=== PATIENT | male | born 1940 | race Caucasian/White ===

== ENCOUNTER 2018-10-30 17:19 | Inpatient (IN) ==
[2018-10-30] MEDS ORDERED: ASPIRIN PO ONE (17:32)
[2018-10-30 18:10] LABS: HEMATOCRIT 45.1 % (42.0-52.0); HEMOGLOBIN 14.9 g/dL (14.0-18.0); MCH 29.9 PG (27-31); MCV 90.4 FL (81-99); MPV 11.1 FL (7.4-10.4); PLT 128 X1000 (130-400); RBC 4.99 XMIL (4.7-6.1); RDW 15.6 % (11.5-14.5); WBC 9.47 X1000 (4.8-10.8)
--- NOTE | 2018-10-30 18:10 | EKG Report ---
Test Performed on : 10/30/2018 5:36:41 PM Test Reason : CP Blood Pressure : / mmHG Vent. Rate : 074 BPM Atrial Rate : 074 BPM P-R Int : 162 ms QRS Dur : 082 ms QT Int : 400 ms P-R-T Axes : 058 071 118 degrees QTc Int : 444 ms Normal sinus rhythm. ST & T wave abnormality, consider anterolateral ischemia Abnormal ECG No previous ECGs available Unconfirmed Result
[2018-10-30 18:11] LABS: BASO# 0.02 X1000 (0.0-0.2); BASO% 0.2 % (0.0-0.8); EOS# 0.01 X1000 (0.0-0.7); EOS% 0.1 % (0.0-10.0); IMM GRAN# 0.03 X1000 (0.0-0.04); IMM GRAN% 0.3 % (0.0-0.5); LYMPH# 0.55 X1000 (1.2-3.4); LYMPH% 5.8 % (20.5-51.1); MONO# 0.64 X1000 (0.11-0.59); MONO% 6.8 % (1.7-9.3); NEUT# 8.22 X1000 (1.4-6.5); NEUT% 86.8 % (42.2-75.2)
--- NOTE | 2018-10-30 18:23 | Diag Imaging Result Doc PS360 ---
EXAM: CHEST-2 VIEWS INDICATION: fever/CP TECHNIQUE: 2 views COMPARISON: 05/16/2016 FINDINGS: There is a right lower lobe airspace consolidation and probably represents pneumonia. There is possibly a component of edema as well. There is mild subsegmental atelectasis at the lung base on the left. There is stable cardiomegaly. There are stable median sternotomy wires. IMPRESSION: Right basilar consolidation as described. Electronically signed by Cory Little 10/30/2018 6:20 PM
[2018-10-30 18:28] LABS: ALBUMIN 4.2 g/dL (3.5-5.0); CREATININE 1.7 mg/dL (0.7-1.2); TOTAL BILIRUBIN 1.6 mg/dL (0.20-1.00); TOTAL PROTEIN 6.3 g/dL (6.3-8.3)
[2018-10-30 18:29] LABS: INR 1.23; PROTIME 16.1 Seconds (11.0-16.0)
[2018-10-30 18:30] LABS: PTT 29.8 Seconds (22.3-41.8)
[2018-10-30 20:24] LABS: BILIRUBIN URINE 1+ (NEGATIVE); BLOOD URINE NEGATIVE (NEGATIVE); GLUCOSE URINE NEGATIVE (NEGATIVE); KETONE URINE 1+(Small) mg/dL (NEGATIVE); LEUKOCYTES URINE TRACE (NEGATIVE); NITRITE URINE POSITIVE (NEGATIVE); PH URINE 6.5; PROTEIN URINE 2+(100 mg/dL) mg/dL (NEGATIVE); SP GRAVITY URINE 1.025; UROBILINOGEN URINE 1 mg/dL
[2018-10-30 20:25] LABS: CLARITY CLEAR (CLEAR); COLOR AMBER
[2018-10-30 20:36] LABS: URINE BACTERIA NEGATIVE /HFP; URINE EPITHELIAL CELLS <10 /HPF (<10); URINE RBC <10 /HPF (<10); URINE SOURCE CLEAN CATCH; URINE WBC <10 /HPF (<10)
[2018-10-30] MEDS ORDERED: ROCEPHIN 1 GM in NS 50 ML IV ONE (20:49)
--- NOTE | 2018-10-30 21:14 | PROVIDER DOCUMENTATION ---
This chart was entered by Azucena Little Scribe, acting as scribe for Nicanor Dillard MD. HPI-General Adult - General Chief Complaint: Chest Pain Stated Complaint: FEVER / BACK PAIN / CHEST PAIN Time Seen by Provider: 10/30/18 19:35 Source: patient, family Allergies/Adverse Reactions: Patient Allergies Allergy/AdvReac Type Severity Reaction Status Date / Time codeine Allergy HIVES Verified 08/18/13 18:37 haloperidol [From Haldol] Allergy Unknown Verified 10/30/18 17:31 Home Medications: Home Medication List Medication Instructions Recorded Confirmed Last Taken Type Amlodipine Besylate 10 mg PO DAILY 08/18/13 08/18/13 Unknown History Aspirin 325 mg PO DAILY 08/18/13 08/18/13 Unknown History Ciprofloxacin HCl [Cipro] 500 mg PO BID #14 tablet 08/18/13 Unknown Rx Doxycycline 100 mg PO BID CC #20 tablet 08/18/13 Unknown Rx Fenofibrate 160 mg PO DAILY 08/18/13 08/18/13 Unknown History Furosemide 40 mg PO DAILY 08/18/13 08/18/13 Unknown History Labetalol [Trandate] 400 mg PO TID 08/18/13 10/30/18 Unknown History Multivitamin [Multi-Day Vitamins] 1 08/18/13 08/18/13 Unknown History [place]-3 Fatty Acids/Fish Oil [Fish 1,000 mg PO BID 08/18/13 10/30/18 Unknown History Oil 1,000 mg Softgel] Potassium Chloride [Klor-Con 10] 10 meq PO DAILY 08/18/13 08/18/13 Unknown History Ropinirole HCl 1 mg PO DAILY 08/18/13 08/18/13 Unknown History SIMVAstatin [Zocor] 10 mg PO DAILY 08/18/13 08/18/13 Unknown History Tramadol/APAP [Ultracet 1 - 2 each PO Q8H PRN PRN #30 08/18/13 Unknown Rx 37.5MG/325Mg] tablet - History of Present Illness -Gen Adult Nature of Presenting Problems: 78 yowm presents to er w/cc rlq pain radiating to rt chest and back starting th is am. sts pt went to get up out of bed to use restroom when pain started. pt has hx of cabg, appendectomy, and cholesytecotmy. pt has hx htn. denies hx of diverticulosis, no small bowel obstruction. pt does have hx of kidney stones. pt is obese. a&ox3, nontoxic in appearance. Review of Systems - Adult - REVIEW OF SYSTEMS - ADULT Constitutional: reports: no symptoms reported. denies: chills, fatique, night sweats Eyes: reports: no symptoms reported Ears, Nose, Mouth & Throat: reports: no symptoms reported Cardiovascular: reports: see HPI, chest pain (rt sided). denies: orthopnea, palpitations, syncope Respiratory: reports: no symptoms reported. denies: dyspnea on exertion, shortness of breath, wheezing Gastrointestinal: reports: see HPI, abdominal pain (rlq). denies: diarrhea, nausea, vomiting Genitourinary: reports: no symptoms reported Musculoskeletal: reports: see HPI, back pain. denies: joint pain, joint swelling, muscle weakness, neck pain Integumentary: reports: no symptoms reported Neurological: reports: no symptoms reported Psychiatric: reports: no symptoms reported Endocrine: reports: no symptoms reported Hematologic/Lymphatic: reports: no symptoms reported Allergic/Immunologic: reports: no symptoms reported All Other Systems: Reviewed and Negative Past History - Adult - PAST MEDICAL HISTORY-ADULT Review of Records: reports: Old Records Reviewed, Nursing Assessment Review, Medications Reviewed, Social history reviewed & non-contributory. Major Childhood Illnesses: reports: denies history Cardiovascular: reports: HTN Respiratory: reports: denies history Gastrointestinal: reports: denies history Obstetrical/Gynecological: reports: denies history Genitourinary: reports: denies history Musculoskeletal: reports: denies history Neurological: reports: denies history Endocrine/Immune: reports: denies history Other Conditions: reports: denies history - PRIOR SURGERIES/PROCEDURES Surgical/Procedure History: reports: appendectomy, CABG, cholecystectomy - PRIOR HOSPITALIZATIONS Prior Hospitalizations: reports: for other non-related - IMMUNIZATION STATUS Childhood Immunizations: See Nurse Assessment Flu Vaccine: See Nurse Assessment - FAMILY HISTORY Family History: reviewed, not pertinent - SOCIAL HISTORY Smoking: non-smoker Substance Use: none/never Physical Exam-General - PHYSICAL EXAM-ADULT Initial Vital Signs Reviewed: Yes - CONSTITUTIONAL General Appearance: appears well, alert, no apparent distress, obese. negative: thin, anxious, lethargic, slow to respond - EYES Eyes: PERRL/EOMI, pink conjunctivae - HEAD, EARS, NOSE, MOUTH & THROAT HENMT: normocephalic/atraumatic, moist mucous membranes, normal ENT inspection - NECK Neck: non-tender, full range of motion, supple, normal inspection - RESPIRATORY Respiratory: chest non-tender, lungs clear, normal breath sounds - CARDIOVASCULAR Cardiovascular: normal peripheral pulses, regular rate, rhythm, no edema, no gallop, no JVD, no murmur. negative: JVD, bradycardia, tachycardia, extra beat s, friction rub - GASTROINTESTINAL (ABDOMEN) Abdominal Exam: normal bowel sounds, soft, no organomegaly, no pulsatile mass, tenderness (rlq to palp). negative: non tender, distended, guarding, rigid - LYMPHATIC Lymphatic: no adenopathy - MUSCULOSKELETAL Back Exam: normal inspection, no CVA tenderness, no vertebral tenderness. neg ative: CVA tenderness, decreased range of motion, vertebral tenderness Extremity: normal range of motion, non-tender, normal inspection, no pedal edema , no calf tenderness, normal capillary refill. negative: deformity, erythema, pulse deficit, pedal edema, slow capillary refill Peripheral Pulses: carotid (R): 2+, carotid (L): 2+ - SKIN Integumentary: normal color, normal turgor, warm/dry - NEUROLOGIC Neurologic: grossly normal, no motor/sensory deficits - PSYCHIATRIC Psych/Mental Status: normal mood/affect, normal thought content, normal thought process, oriented x 3 Progress - PLAN OF CARE/RESULTS Progress/Plan/Lab Results: Vital Signs - 8 hr 10/30/18 17:27 Temperature 98.3 F Pulse Rate 72 Respiratory Rate 20 Blood Pressure 102/59 O2 Sat by Pulse Oximetry 92 L Laboratory Results - last 24 hr 10/30/18 10/30/18 10/30/18 17:50 17:50 17:50 WBC 9.47 RBC 4.99 Hgb 14.9 Hct 45.1 MCV 90.4 MCH 29.9 MCHC 33.0 RDW Std Deviation 15.6 H Plt Count 128 L MPV 11.1 H Immature Gran % (Auto) 0.3 Neut % (Auto) 86.8 H Lymph % (Auto) 5.8 L [place] % (Auto) 6.8 Eos % (Auto) 0.1 Baso % (Auto) 0.2 Immature Gran # (Auto) 0.03 Neut # (Auto) 8.22 H Lymph # (Auto) 0.55 L [place] # (Auto) 0.64 H Eos # (Auto) 0.01 Baso # (Auto) 0.02 PT INR PTT (Actin FS) Sodium 141 Potassium 4.0 Chloride 105 Carbon Dioxide 22 L Anion Gap 15 BUN 27 H Creatinine 1.7 H Estimated GFR/1.73 m2 39 BUN/Creatinine Ratio 16 Glucose 146 H Calculated Osmolality 289 Calcium 9.0 Total Bilirubin 1.60 H AST 20 ALT 19 Alkaline Phosphatase 29 L Creatine Kinase 182 Troponin T Ajw-I-Fnwbbuxgtoe Pept 1426 H Total Protein 6.3 Albumin 4.2 Globulin 2.0 Albumin/Globulin Ratio 2.0 10/30/18 10/30/18 17:50 17:50 WBC RBC Hgb Hct MCV MCH MCHC RDW Std Deviation Plt Count MPV Immature Gran % (Auto) Neut % (Auto) Lymph % (Auto) [place] % (Auto) Eos % (Auto) Baso % (Auto) Immature Gran # (Auto) Neut # (Auto) Lymph # (Auto) [place] # (Auto) Eos # (Auto) Baso # (Auto) PT 16.1 H INR 1.23 PTT (Actin FS) 29.8 Sodium Potassium Chloride Carbon Dioxide Anion Gap BUN Creatinine Estimated GFR/1.73 m2 BUN/Creatinine Ratio Glucose Calculated Osmolality Calcium Total Bilirubin AST ALT Alkaline Phosphatase Creatine Kinase Troponin T < 0.010 Nbu-O-Dlvdszgcdva Pept Total Protein Albumin Globulin Albumin/Globulin Ratio Orders Category Date Time Status Cardiac Monitoring DIRECTED Care 10/30/18 17:33 Active Oxygen Therapy- ED Nursing DIRECTED Care 10/30/18 17:33 Active Saline Loc NOW Care 10/30/18 17:33 Active CHEST-2 VIEWS [RAD] Stat Exams 10/30/18 17:33 Completed CBC WITH ELECTRONIC DIFF [HEME] Stat Lab 10/30/18 17:50 Completed CK PROFILE [SP CHEM] Stat Lab 10/30/18 17:50 Completed COMPREHENSIVE METABOLIC PANEL [CHEM] Stat Lab 10/30/18 17:50 Completed PRO B-NATRIURETIC PEPTIDE Stat Lab 10/30/18 17:50 Completed PROTIME WITH INR [COAG] Stat Lab 10/30/18 17:50 Completed PTT [COAG] Stat Lab 10/30/18 17:50 Completed TROPONIN T Stat Lab 10/30/18 17:50 Completed Aspirin Med 10/30/18 17:32 Discontinued 325 mg PO NOW ONE CP/SOB/Palp >45 yrs of Age Stat Oth 10/30/18 17:32 Ordered EKG [EKG] Stat Ther 10/30/18 17:33 Draft Result Diagrams: 10/30/18 17:50 10/30/18 17:50 - EKG 1 Time of EKG reading by physician:: 17:36 EKG Read and Signed by:: Irma Veras EKG Interpretation (*Must complete 3 of following elements*): Abnormal Rate: 74 Rhythm: NSR [place]: normal QRS: normal GA Interval: normal ST Wave: non-specific ST changes (St & T wave abnormality, consider anterolateral ischemia) - XRAY 1 XRAY: Bilateral XRAY Study: Chest Impression: Abnormal, See EMR Report ( EXAM: CHEST-2 VIEWS INDICATION: fever/CP TECHNIQUE: 2 views COMPARISON: 05/16/2016 FINDINGS: There is a right lower lobe airspace consolidation and probably represents pneumonia. There is possibly a component of edema as well. There is mild subsegmental atelectasis at the lung base on the left. There is stable cardiomegaly. There are stable median sternotomy wires. IMPRESSION: Right basilar consolidation as described. Electronically signed by Cory Little 10/30/2018 6:20 PM) Comparison with other Films: changes noted Departure - Departure Date of Disposition Decision: 10/30/18 Time of Disposition Decision: 21:13 DIAGNOSIS: Pneumonia Disposition: ADMITTED INPATIENT 09 Certified Medical Emergency: Emergent Condition: Stable Referrals and Follow-Ups: Britney Hernandez [Primary Care Provider] - - Critical Care Note This patient required my direct & personal management of CC.: No Attestation - Physician/ TRACE Attestation Patient care was provided by Advanced Practice Provider:: No The physician spent face to face time with patient:: Yes Advanced Practice Provider documentation review:: Supervising physician onsite and consulted in the evaluation and care of this patient. The physician did have a face to face encounter with the patient. This chart was documented by the indicated scribe, (Azucena Little Scribe) and accurately reflects the services I performed and decisions made by me, Nicanor Dillard MD, as attested by the provider's signature.
[2018-10-30] MEDS: DUONEB (A & A) INH SCH (23:51)
[2018-10-31] MEDS ORDERED: NORCO-5 PO PRN (01:54)
[2018-10-31] MEDS: REQUIP PO SCH ×2 (02:26→21:12)
[2018-10-31] MEDS: DUONEB (A & A) INH SCH ×6 (04:02→22:42)
[2018-10-31 09:11] LABS: ALBUMIN 3.4 g/dL (3.5-5.0); CALCIUM 8.3 mg/dL (8.8-10.2); CREATININE 2.7 mg/dL (0.7-1.2); POTASSIUM 3.9 mmol/L (3.5-5.1); TOTAL BILIRUBIN 0.8 mg/dL (0.20-1.00); TOTAL PROTEIN 5.9 g/dL (6.3-8.3)
[2018-10-31 09:15] LABS: BASO# 0.02 X1000 (0.0-0.2); BASO% 0.2 % (0.0-0.8); EOS# 0.03 X1000 (0.0-0.7); EOS% 0.3 % (0.0-10.0); HEMATOCRIT 40.7 % (42.0-52.0); HEMOGLOBIN 13.7 g/dL (14.0-18.0); IMM GRAN# 0.11 X1000 (0.0-0.04); IMM GRAN% 1.2 % (0.0-0.5); LYMPH# 0.74 X1000 (1.2-3.4); LYMPH% 8.4 % (20.5-51.1); MCH 30.6 PG (27-31); MCHC 33.7 g/dL (33-37); MCV 90.8 FL (81-99); MONO# 0.43 X1000 (0.11-0.59); MONO% 4.9 % (1.7-9.3); MPV 11.1 FL (7.4-10.4); NEUT# 7.53 X1000 (1.4-6.5); PLT 111 X1000 (130-400); RBC 4.48 XMIL (4.7-6.1); RDW 15.8 % (11.5-14.5); WBC 8.86 X1000 (4.8-10.8)
[2018-10-31] MEDS: LEVAQUIN 750 MG/D5W 750 MG/150 ML IVPB IV SCH (09:30)
[2018-10-31] MEDS: ASPIRIN EC PO SCH (09:45)
[2018-10-31] MEDS: LASIX PO SCH (09:45)
[2018-10-31] MEDS ORDERED: NS 1,000 ML IV SCH (09:45)
[2018-10-31] MEDS: FISH OIL CONCENTRATE PO SCH ×2 (09:45→21:12)
[2018-10-31] MEDS: THERA M PLUS PO SCH (09:45)
[2018-10-31] MEDS: NORVASC PO SCH (09:45)
[2018-10-31] MEDS: COZAAR PO SCH (09:46)
[2018-10-31] MEDS ORDERED: TYLENOL PO PRN (09:50)
[2018-10-31 10:14] LABS: ANISOCYTOSIS 1+; BANDS 4 % (0-1); LYMPHS 6 % (21-51); MONO 3 % (1-9); SEGS 87 % (42-75)
[2018-10-31 10:23] LABS: HEMOGLOBIN A1C 6.3 % (4.8-6.0)
[2018-10-31] MEDS: GLUCOSAMINE 500 MG/CHONDROITIN 400 MG PO SCH ×2 (10:57→21:12)
[2018-10-31] MEDS: HEPARIN SUBQ SCH ×2 (10:57→21:39)
--- NOTE | 2018-10-31 11:11 | HISTORY AND PHYSICAL ---
PRIMARY CARE PROVIDER: Dr. Britney Hernandez. CHIEF COMPLAINT: Right-sided chest pain with shortness of breath. HISTORY OF PRESENT ILLNESS: Mr. Dung Corbett is a 78-year-old male with a medical history of coronary artery disease with a CABG, aortic dissection with repair, hypertension, congestive heart failure, and morbid obesity, who recently was on a 5-day vacation to [place]. They drove by car, and returned home about 2 days ago. That is when he started feeling bad. He was having pain down his legs, primarily the left one, feeling more short of breath, not very hungry, was skipping meals, having more fatigue, and then apparently last night before he presented to the ER, he had a 100 degree fever that is subjective. States he has had a dry cough that is nonproductive, and has just been feeling overall more fatigued and weak. He had a chest x-ray which revealed a right lower lobe consolidation, consistent with pneumonia, but could have some component of edema, so he has been admitted and treated with antibiotic therapy. He does have somewhat of an acute kidney injury as well on top of CKD. Today, he states he is feeling better. He still has a little bit of shortness of breath, but feels a little better. He does complain of not being able to void, and will evaluate that. PAST MEDICAL HISTORY: 1. Coronary artery disease. No myocardial infarction, but CABG in 2012. 2. Hypertension. 3. Kidney stones. 4. Obesity with a BMI of 41.6. 5. Congestive heart failure. 6. Hyperlipidemia. 7. Melanoma. 8. Bilateral lower extremity sciatic nerve pain. 9. CKD stage 3. PAST SURGICAL HISTORY: 1. In 2013, had aortic dissection repair and a coronary artery bypass grafting at [facility]. 2. Appendectomy. 3. Cholecystectomy. 4. Melanoma removed from the forehead. SOCIAL HISTORY: Denies tobacco, alcohol, or illicit drug use. He actually says that he does drink about 1 to 2 beers per year at the most, if that. Lives at home with his . 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 FAMILY HISTORY: Mother had breast cancer and hypertension. Father had a heart attack in his 50s. ALLERGIES: Haldol makes him agitated, and codeine. HOME MEDICATIONS: 1. Ropinirole 1 mg p.o. nightly. 2. Fenofibrate 160 mg p.o. nightly. 3. Simvastatin 10 mg p.o. nightly. 4. Labetalol 400 mg p.o. every 8 hours. 5. Amlodipine 5 mg p.o. daily. 6. Docusate sodium 100 mg p.o. twice daily. 7. Aspirin 325 mg p.o. daily. 8. Fish oil 1000 mg p.o. twice daily. 9. Lasix 20 mg p.o. daily. 10. Glucosamine twice daily. 11. Potassium chloride 20 mEq p.o. daily. 12. Losartan 25 mg p.o. daily. 13. Multivitamin 1 tablet p.o. daily. REVIEW OF SYSTEMS: A 14-point review of systems was complete, and all were negative, except for those mentioned in the above HPI. PHYSICAL EXAMINATION: VITAL SIGNS: Temperature 97.9 degrees, heart rate 66, respiratory rate 20, blood pressure 122/60, O2 saturation 93% on 3 L nasal cannula. GENERAL: Mr. Dung Corbett is a 78-year-old male in no acute distress. He is able to answer questions appropriately. HEENT: Atraumatic, normocephalic. Pupils equal, round, reactive to light. Extraocular movements intact. Mucous membranes are dry. NECK: Trachea midline. CARDIOVASCULAR: S1, S2. Regular rate and rhythm. No rubs, gallops, murmurs. Trace lower extremity edema. There are +2 dorsalis and radial pulses. Negative JVD or carotid bruits. PULMONARY: Clear to auscultate. Decreased in the right base. No accessory muscle use or work of breathing noted. Tolerating 3 L nasal cannula. GASTROINTESTINAL: Soft, nontender, nondistended. Positive bowel sounds x4. EXTREMITIES: Moves all extremities equally. Decreased range of motion. NEUROLOGIC: A and O x3. Follows commands. Sensory is intact. SKIN: Warm, dry, intact. LABORATORY DATA: White blood cells 8000, hemoglobin 13, hematocrit 40, platelet count 111. D- dimer is 1.15. Sodium 139, potassium 3.9, BUN 39, creatinine is 2.7, glucose 165, calcium 8.3, bilirubin 0.80. AST 20, ALT 16. Negative cardiac enzymes. ProBNP 1426. Albumin 3.4. Serum lactate 1.9. Urinalysis shows 2+ protein, 1+ ketones, positive nitrites, 1+ bilirubin, trace white blood cells, negative for bacteria. IMAGING: Chest x-ray: Right basilar consolidation. Could have some component of edema as well. EKG: Normal sinus rhythm, rate 74, QTc is 444. ASSESSMENT AND PLAN: 1. Right lower lobe pneumonia, community acquired. Will be on Levaquin and Rocephin, nebulizers, albuterol and Atrovent every 4 hours. Sputum culture if he is able to provide any. 2. Sciatic nerve pain, bilateral lateral lower extremities, but has some new pain with an elevated D-dimer that is different since his long-distance trip that he was in a car, so will get an ultrasound of the lower extremities. Will also go ahead and just get a V/Q scan to rule out any pulmonary emboli. 3. Acute kidney injury on chronic kidney disease stage 3. He did already get his losartan and his Lasix and his amlodipine this morning, so will repeat a BMP around 3:30 today. We may have to just stop those while he is in here. Go ahead and start him on some normal saline at 75 an hour for about 1 bag or 1 liter worth to rehydrate his kidneys. He has not had a whole lot of oral intake. He has been skipping meals for the last 2 days. 4. History of congestive heart failure. We are going to get an echocardiogram to evaluate systolic versus diastolic. His Lasix has been continued. It might have to be stopped though due to the acute kidney injury. Will re-evaluate that around 3:30 or 4:00 today. 5. Hyperlipidemia. Continue Zocor and fenofibrate. 6. Hypertension. Labetalol will be continued at 400 by mouth every 8 hours. Amlodipine 5 mg daily was resumed, but that might have to be discontinued since his kidneys are worsening, and the losartan 25 mg by mouth daily, that was resumed, but it may need to be stopped as well, so like I said, we will evaluate around 3:00 or 4:00 today. 7. Thrombocytopenia. Admission platelet count was 128,000. Today, it is 111,000. He is on heparin subcutaneously 5000 units twice a day for deep venous thrombosis prophylaxis, so will have to monitor the platelet count daily. There are no signs or symptoms of bleeding. 8. Hyperglycemia. He denies having diabetes. Will check a hemoglobin A1c. His three sugars while he has been here were 146, 165, 135. 9. Deep venous thrombosis prophylaxis. Heparin 5000 units twice a day. 10. Urinalysis with positive nitrites, but negative bacteria, so will follow up on the pending culture. Dictated by MARKUS Bruner for John Anderson MD Addendum: Patient seen and examined by myself. Agree with MARKUS note. It reflects my assessment and plan. Patient is being admitted to hospital for pneumonia. Will start him on Rocephin and Levaquin, breathing treatments. Will monitor patient closely. cc: MARKUS Bruner MD [facility]
--- NOTE | 2018-10-31 12:31 | Diag Imaging Result Doc PS360 ---
LUNG SCAN / VQ - 10/31/2018 INDICATION: sob; lung pain; elevated ddimer TECHNIQUE: 39.8 mCi of DTPA was used for inhalation. 5.9 mCi of MAA was used for injection. COMPARISON: Chest x-ray from 10/30/2018 FINDINGS: There is normal localization pattern of both radiotracer's. There is no pulmonary perfusion defect. IMPRESSION: Negative for pulmonary embolism. Electronically signed by Kuldeep Hinson 10/31/2018 12:28 PM
--- NOTE | 2018-10-31 13:11 | Extremity Venous Study ---
Venous U/S Bilateral Legs - 10/31/2018 INDICATION: calf pain TECHNIQUE: COMPARISON: None FINDINGS: There is superficial venous thrombosis of the right greater saphenous vein, from the distal thigh to the mid thigh. This is echogenic and may well be acute. The other veins are normal. Normal compressibility and Doppler signal. No mass or fluid collection. IMPRESSION: Superficial venous thrombosis of the right greater saphenous vein. Electronically signed by Kuldeep Hinson 10/31/2018 1:08 PM
[2018-10-31] MEDS: TRANDATE PO SCH ×2 (14:25→21:12)
[2018-10-31 15:47] LABS: CALCIUM 8.3 mg/dL (8.8-10.2); CREATININE 2.4 mg/dL (0.7-1.2); POTASSIUM 3.6 mmol/L (3.5-5.1)
[2018-10-31] MEDS ORDERED: ROCEPHIN 1 GM in NS 50 ML IV SCH (21:00)
[2018-10-31] MEDS ORDERED: ROCEPHIN 1 GM in NS 50 ML IV ONE (21:00)
[2018-10-31] MEDS: TRICOR PO SCH (21:12)
[2018-10-31] MEDS: COLACE PO SCH (21:12)
[2018-10-31] MEDS: ZOCOR PO SCH (21:13)
[2018-11-01] MEDS: DUONEB (A & A) INH SCH ×6 (03:14→23:40)
[2018-11-01] MEDS: TRANDATE PO SCH ×3 (04:08→21:38)
[2018-11-01 05:58] LABS: HEMATOCRIT 40.6 % (42.0-52.0); HEMOGLOBIN 13.4 g/dL (14.0-18.0); MCH 29.8 PG (27-31); MCV 90.4 FL (81-99); RBC 4.49 XMIL (4.7-6.1); RDW 15.7 % (11.5-14.5); WBC 6.91 X1000 (4.8-10.8)
[2018-11-01 05:59] LABS: BASO# 0.01 X1000 (0.0-0.2); BASO% 0.1 % (0.0-0.8); EOS# 0.22 X1000 (0.0-0.7); EOS% 3.2 % (0.0-10.0); IMM GRAN# 0.02 X1000 (0.0-0.04); IMM GRAN% 0.3 % (0.0-0.5); LYMPH# 0.64 X1000 (1.2-3.4); LYMPH% 9.3 % (20.5-51.1); MONO# 0.32 X1000 (0.11-0.59); MONO% 4.6 % (1.7-9.3); MPV 11.4 FL (7.4-10.4); NEUT% 82.5 % (42.2-75.2); PLT 118 X1000 (130-400)
[2018-11-01 06:17] LABS: ALBUMIN 3.1 g/dL (3.5-5.0); CALCIUM 8.4 mg/dL (8.8-10.2); CREATININE 1.8 mg/dL (0.7-1.2); POTASSIUM 3.4 mmol/L (3.5-5.1); TOTAL BILIRUBIN 0.3 mg/dL (0.20-1.00)
--- NOTE | 2018-11-01 07:52 | Diag Imaging Result Doc PS360 ---
EXAM: CHEST-PORTABLE 11/01/2018 HISTORY: sob TECHNIQUE: AP portable at 0645 COMMENT: There has been some improvement in the right basilar opacity present on 10/30/2018. There is still some atelectasis or pneumonia in the left base. The heart size remains enlarged. IMPRESSION: Improved pneumonia in the right lower lobe. Electronically signed by Abel Mcgovern 11/01/2018 7:50 AM
--- NOTE | 2018-11-01 08:20 | ECHO REPORT ---
ORDER DATE: 10/31/2018 SUMMARY: 1. Technically difficult study due to limited acoustic window quality. Intravenous echo contrast agent Optison was utilized to enhance endocardial definition. 2. Aortic valve was without evidence of structural abnormality and appears to open adequately on 2-dimensional images. Peak gradient across aortic valve is less than 10 mmHg. Mitral and tricuspid valves are without evidence of structural abnormality while pulmonic valve is not well demonstrated. There is mild to moderate tricuspid regurgitation. The estimated systolic PA pressure by Doppler is 30 to 35 mmHg. The aortic root is normal in size. 3. Normal left ventricular chamber size with mild concentric left hypertrophy is suggested on 2- dimensional images. Estimated left ejection fraction appears to be at least 55%. There is abnormal septal motion typical of post coronary bypass surgery. No other wall motion abnormalities are evident. Doppler suggests grade 1 left ventricular diastolic dysfunction. Left atrium is mildly enlarged. Right atrium and right ventricle are grossly normal size with grossly preserved right ventricular systolic function. 4. No pericardial effusion. 5. Inferior vena cava not well demonstrated. CONCLUSIONS: 1. Technically difficult study. 2. Mild to moderate tricuspid regurgitation. 3. Mild concentric left ventricular hypertrophy with estimated left ventricular ejection fraction at least 55%. 4. Grade 1 left ventricular diastolic dysfunction suggested. 5. Mild left atrial enlargement. cc: MD John Chandler MD
[2018-11-01] MEDS ORDERED: KLOR-CON PO ONE (08:53)
[2018-11-01] MEDS: LEVAQUIN 750 MG/D5W 750 MG/150 ML IVPB IV SCH (09:33)
[2018-11-01] MEDS: FISH OIL CONCENTRATE PO SCH ×2 (09:34→21:38)
[2018-11-01] MEDS: GLUCOSAMINE 500 MG/CHONDROITIN 400 MG PO SCH ×2 (09:34→21:38)
[2018-11-01] MEDS: HEPARIN SUBQ SCH ×2 (09:34→21:37)
[2018-11-01] MEDS: COZAAR PO SCH (09:35)
[2018-11-01] MEDS: LASIX PO SCH (09:35)
[2018-11-01] MEDS: NORVASC PO SCH (09:35)
[2018-11-01] MEDS: COLACE PO SCH ×2 (09:35→21:37)
[2018-11-01] MEDS: THERA M PLUS PO SCH (09:38)
[2018-11-01] MEDS: ASPIRIN EC PO SCH (09:38)
--- NOTE | 2018-11-01 11:53 | Diag Imaging Result Doc PS360 ---
EXAM: CT THORAX W/O CONTRAST HISTORY: pna, sob TECHNIQUE: CT chest without contrast COMPARISON: 06/10/2018 FINDINGS: Trace pleural fluid. Dense right lower lobe pneumonia with air bronchograms have developed since the prior exam. Tiny infiltrates and atelectasis in the left lower lobe. The heart remains enlarged. Prominent atherosclerosis. Sternal wires are present. No enlarged lymph nodes. There is pulmonary edema. Dilated proximal descending thoracic aorta similar to the prior study. IMPRESSION: 1.Prominent right lower lobe pneumonia 2.Cardiomegaly with pulmonary edema 3.Stable proximal descending aorta This exam was performed using automated exposure control, adjustment of mA or kV according to patient size, and/or use of iterative reconstruction technique. Electronically signed by Ja Anderson 11/01/2018 11:51 AM
[2018-11-01] MEDS ORDERED: LASIX IV ONE (12:34)
[2018-11-01] MEDS: TEFLARO 600 MG in NS 250 ML IV SCH (13:57)
[2018-11-01] MEDS: ZOSYN 3.375 GM in NS 50 ML IV SCH ×2 (15:00→20:30)
--- NOTE | 2018-11-01 18:19 | PROGRESS NOTE ---
DATE: 11/01/2018 SUBJECTIVE: Patient reports feeling fine. Family member reports that he was getting short of breath in the last 4 weeks to 6 weeks. He is still getting mildly short of breath while he is here. OBJECTIVE: Vital Signs: Temperature 98.4, heart rate 72, respiratory rate 20, blood pressure 130/69, O2 saturation 94% on 3 L nasal cannula. General Examination: This is an obese, 78-year- old, male, lying in bed in no acute distress. Cardiovascular: S1, S2 heard. No murmurs, gallops, or rubs. Regular rate and rhythm. Respiratory: Clear bilaterally to auscultation with minimal rhonchi in both pulmonary bases. Patient is not using any accessory muscles or having work of breathing. Abdomen: Soft, nontender to palpation. Bowel sounds present. No organomegaly. Extremities: No clubbing, cyanosis, or edema. Peripheral pulses present in both legs. Neurological: Patient is alert and oriented x3. Moves 4 extremities. LABORATORY AND DIAGNOSTIC DATA: Reviewed. Normal white cell count. Potassium 3.[address] of the chest revealed prominent right lower lobe pneumonia with cardiomegaly with pulmonary edema and stable proximal descending aorta. ASSESSMENT AND PLAN: 1. Right lower lobe pneumonia, community acquired. The patient is still feeling short of breath. So, we decided to do a CT of the chest, which shows prominent pneumonia. So at this point, I prefer to first switch antibiotics to Teflaro and Zosyn. We will keep this patient over the weekend. Even though his white cell count is normal and not developing any fever, the fact that his pneumonia is prominent, I prefer to keep this patient as we mentioned before, over the weekend. 2. Acute kidney injury. Actually, he has chronic kidney disease stage 3. His renal function is back to his baseline. Will continue to monitor CBC and BMP daily. 3. Sciatic nerve pain with bilateral lower extremity pain. Aware. Will continue home medications. 4. History of congestive heart failure. The CT of the chest revealed pulmonary edema. So at this point, I think we will provide 1 dose of Lasix 80 mg and will continue with oral Lasix as well. 5. Hypertension. We will continue with current home medications. 6. Thrombocytopenia. The platelet count is around the same, 118,000 today. Will continue to monitor CBC. 7. Deep vein thrombosis prophylaxis with heparin. 8. Disposition. We will continue to monitor this patient closely. cc: John Anderson MD
[2018-11-01] MEDS: ZOCOR PO SCH (21:37)
[2018-11-01] MEDS: REQUIP PO SCH (21:38)
[2018-11-01] MEDS: TRICOR PO SCH (21:38)
[2018-11-02] MEDS: TEFLARO 600 MG in NS 250 ML IV SCH ×2 (00:05→13:34)
[2018-11-02] MEDS: ZOSYN 3.375 GM in NS 50 ML IV SCH ×6 (03:06→21:27)
[2018-11-02] MEDS: DUONEB (A & A) INH SCH ×6 (03:26→22:44)
[2018-11-02] MEDS: TRANDATE PO SCH ×3 (04:16→21:28)
[2018-11-02] MEDS: COLACE PO SCH ×2 (09:28→21:28)
[2018-11-02] MEDS: FISH OIL CONCENTRATE PO SCH ×2 (09:28→21:28)
[2018-11-02] MEDS: GLUCOSAMINE 500 MG/CHONDROITIN 400 MG PO SCH ×2 (09:28→21:27)
[2018-11-02] MEDS: LASIX PO SCH (09:28)
[2018-11-02] MEDS: ASPIRIN EC PO SCH (09:28)
[2018-11-02] MEDS: THERA M PLUS PO SCH (09:28)
[2018-11-02] MEDS: NORVASC PO SCH (09:29)
[2018-11-02] MEDS: HEPARIN SUBQ SCH ×2 (09:29→21:28)
[2018-11-02] MEDS: COZAAR PO SCH (09:29)
[2018-11-02] MEDS ORDERED: COZAAR PO ONE (10:00)
--- NOTE | 2018-11-02 12:27 | PROGRESS NOTE ---
DATE: 11/02/2018 SUBJECTIVE: The patient reports feeling fine. As per a family member who is at the bedside, I guess his granddaughter, reports that whenever the patient tries to walk some he is still short of breath. OBJECTIVE: Vital Signs: Temperature is 98.1, heart rate 63, respiratory rate 20, blood pressure 153/93, and O2 saturation 93% on 4 L nasal cannula. General: This is an obese 78-year-old male lying in bed in no acute distress. Cardiovascular: S1 and S2 are heard. No murmurs, gallops, or rubs. Regular rate and rhythm. Respiratory: There are coarse breath sounds noted in the right lung. The patient is using accessory muscles and having work of breathing. Abdomen: Soft. Nontender to palpation. Bowel sounds are present. No organomegaly. Extremities: No clubbing, cyanosis, or edema. Peripheral pulses are present in both legs. Neurological: The patient is alert and oriented times 3 and moves all 4 extremities. LABORATORY DATA: Reviewed. ASSESSMENT AND PLAN: 1. Right lower lobe pneumonia, community-acquired. We have switched to Teflaro and Zosyn considering that his CT showed prominent right lower lobe pneumonia. We will continue with the same management. We agreed with the patient to keep that until next Sunday and then at that time I think we can stitch to oral medications. 2. Pulmonary edema. That is the reason why she got one dose of Lasix 80 mg IV yesterday and we will continue with oral Lasix as well. 3. Chronic kidney disease stage 3. Creatinine is around baseline. We will continue to monitor. 4. History of congestive heart failure. We will continue home medications. 5. Hypertension. Blood pressure is a little bit elevated so we are going to increase the dosage of losartan from 25 mg to 50 mg p.o. daily. 6. Thrombocytopenia. I will continue to monitor her CBC. 7. Deep vein thrombosis prophylaxis with heparin. DISPOSITION: We will continue to monitor this patient closely. cc: John Anderson MD
[2018-11-02] MEDS: TRICOR PO SCH (21:27)
[2018-11-02] MEDS: ZOCOR PO SCH (21:27)
[2018-11-02] MEDS: REQUIP PO SCH (21:28)
[2018-11-03] MEDS: TEFLARO 600 MG in NS 250 ML IV SCH ×2 (00:34→12:54)
[2018-11-03] MEDS: ZOSYN 3.375 GM in NS 50 ML IV SCH ×4 (03:07→21:22)
[2018-11-03] MEDS: DUONEB (A & A) INH SCH ×6 (03:25→22:30)
[2018-11-03] MEDS: TRANDATE PO SCH ×3 (04:12→20:49)
[2018-11-03 09:29] LABS: CALCIUM 8.9 mg/dL (8.8-10.2); CREATININE 1.6 mg/dL (0.7-1.2)
[2018-11-03] MEDS: HEPARIN SUBQ SCH ×2 (09:48→21:22)
[2018-11-03] MEDS: GLUCOSAMINE 500 MG/CHONDROITIN 400 MG PO SCH ×2 (09:48→20:49)
[2018-11-03] MEDS: COLACE PO SCH ×2 (09:49→20:49)
[2018-11-03] MEDS: NORVASC PO SCH (09:49)
[2018-11-03] MEDS: THERA M PLUS PO SCH (09:49)
[2018-11-03] MEDS: COZAAR PO SCH (09:49)
[2018-11-03] MEDS: FISH OIL CONCENTRATE PO SCH ×2 (09:49→20:49)
[2018-11-03] MEDS: LASIX PO SCH (09:49)
[2018-11-03] MEDS: ASPIRIN EC PO SCH (09:49)
--- NOTE | 2018-11-03 11:15 | PROGRESS NOTE ---
DATE: 11/03/2018 SUBJECTIVE: Patient reports breathing much better. He reports definitely much less shortness of breath when he walks. Family, who is at bedside, reports that he is feeling and looking much better as well. OBJECTIVE: Vital Signs: Temperature 97.9 degrees, heart rate 62, respiratory rate 18, blood pressure 165/86, O2 saturation is 94% on room air. General Examination: This is an obese, 78- year-old, male, lying in bed, in no acute distress. Cardiovascular Examination: S1 and S2 heard. No murmurs, gallops, or rubs. Regular rate and rhythm. Respiratory Examination: Coarse breath sounds still noted in the right lung but definitely better in comparing with admission. The patient is not using any accessory muscles or having work of breathing. Abdomen: Soft, nontender to palpation. Bowel sounds present. No organomegaly. Extremities: No clubbing, cyanosis, or edema. Peripheral pulses present in both legs. Neurological Examination: The patient is alert and oriented x3. Moves 4 extremities. Laboratory Data: Reviewed. ASSESSMENT AND PLAN: 1. Right lower lobe pneumonia, community-acquired. The patient is on Teflaro and Zosyn, day #3 for both medications. We will continue with the same antibiotics for today. I think this patient is getting much better. He is not requiring any oxygen supplementation. At admission, he was requiring 2 L of oxygen by nasal cannula. Also, patient reports that he is not getting short of breath while he walks in the hallways. I think tomorrow, he can be discharged with oral medications. 2. Pulmonary edema. Patient is on Lasix at home. He had received so far yesterday 80 mg of Lasix. Now we will continue with his home medications. 3. Chronic kidney disease stage 3. Creatinine at baseline. We will continue to monitor. 4. History of congestive heart failure. We will continue home medications. 5. Hypertension. The patient has been increased on his losartan from 25 to 50 mg by mouth daily and blood pressure is still a little bit elevated. We will monitor this patient closely today. If the blood pressure remains elevated, we will change it to 50 mg by mouth twice a day. 6. Thrombocytopenia. We will continue to monitor CBC. In the first 2 days of admission, the platelets have been always above 100,000. We will continue to monitor. 7. Deep vein thrombosis prophylaxis. Patient is on heparin but there has been a drop in platelet counts so we will continue to monitor CBC. 8. Disposition. As we mentioned before, the patient should be able to go home tomorrow. cc: John Anderson MD MTDD
[2018-11-03] MEDS: ZOCOR PO SCH (20:49)
[2018-11-03] MEDS: REQUIP PO SCH (20:49)
[2018-11-03] MEDS: TRICOR PO SCH (20:49)
[2018-11-04] MEDS: TEFLARO 600 MG in NS 250 ML IV SCH ×2 (00:08→13:18)
[2018-11-04] MEDS: ZOSYN 3.375 GM in NS 50 ML IV SCH ×2 (03:06→10:28)
[2018-11-04] MEDS: DUONEB (A & A) INH SCH ×3 (03:35→11:59)
[2018-11-04] MEDS: TRANDATE PO SCH ×2 (04:11→13:19)
[2018-11-04 06:58] LABS: BASO# 0.03 X1000 (0.0-0.2); BASO% 0.4 % (0.0-0.8); EOS# 0.26 X1000 (0.0-0.7); EOS% 3.6 % (0.0-10.0); HEMATOCRIT 42.3 % (42.0-52.0); HEMOGLOBIN 14.2 g/dL (14.0-18.0); IMM GRAN# 0.18 X1000 (0.0-0.04); IMM GRAN% 2.5 % (0.0-0.5); LYMPH# 0.81 X1000 (1.2-3.4); LYMPH% 11.1 % (20.5-51.1); MCH 29.8 PG (27-31); MCHC 33.6 g/dL (33-37); MCV 88.7 FL (81-99); MONO# 0.62 X1000 (0.11-0.59); MONO% 8.5 % (1.7-9.3); NEUT# 5.38 X1000 (1.4-6.5); NEUT% 73.9 % (42.2-75.2); PLT 141 X1000 (130-400); RBC 4.77 XMIL (4.7-6.1); WBC 7.28 X1000 (4.8-10.8)
[2018-11-04 07:08] LABS: CALCIUM 9.1 mg/dL (8.8-10.2); CREATININE 1.6 mg/dL (0.7-1.2); POTASSIUM 3.7 mmol/L (3.5-5.1)
--- NOTE | 2018-11-04 08:17 | Diag Imaging Result Doc PS360 ---
EXAM: CHEST-2 VIEWS HISTORY: pna TECHNIQUE: PA and Lateral chest x-ray COMPARISON: 11/01/2018 FINDINGS: Marked cardiomegaly again noted. There are median sternotomy wires. Unchanged opacity right lung base. There is increasing retrocardiac opacity. Trace effusions have not significantly changed. Pulmonary vasculature is not congested. IMPRESSION: 1.Unchanged right basilar infiltrate. 2.Increasing retrocardiac infiltrate left lower lobe. 3.Marked cardiomegaly unchanged. Electronically signed by Linda Brower 11/04/2018 8:14 AM
[2018-11-04] MEDS: GLUCOSAMINE 500 MG/CHONDROITIN 400 MG PO SCH (10:28)
[2018-11-04] MEDS: HEPARIN SUBQ SCH (10:28)
[2018-11-04] MEDS: FISH OIL CONCENTRATE PO SCH (10:29)
[2018-11-04] MEDS: COLACE PO SCH (10:29)
[2018-11-04] MEDS: NORVASC PO SCH (10:29)
[2018-11-04] MEDS: ASPIRIN EC PO SCH (10:29)
[2018-11-04] MEDS: COZAAR PO SCH (10:29)
[2018-11-04] MEDS: LASIX PO SCH (10:29)
[2018-11-04] MEDS: THERA M PLUS PO SCH (10:29)
[2018-11-04 11:30] VITALS: BP 121/76
--- NOTE | 2018-11-05 07:09 | DISCHARGE SUMMARY ---
ADMISSION DATE: 10/30/2018 DISCHARGE DATE: 11/04/2018 PRIMARY PROCEDURES: 1. Chest x-ray right basilar consolidation. 2. EKG normal sinus rhythm with ST and T-wave abnormality. 3. Bilateral venous Doppler showed superficial venous thrombosis of the right greater saphenous vein. 4. Echocardiogram showed LVH with an estimated left ventricular ejection fraction of 55% with grade 1 left ventricular diastolic dysfunction pending. 5. V/Q scan was negative for PE. 6. Chest CT showed prominent right lower lobe pneumonia, cardiomegaly and pulmonary edema, stable proximal descending aorta, PA and lateral, showed unchanged right basilar infiltrate, increasing retrocardiac infiltrate of the left lower lobe and marked cardiomegaly unchanged. HOSPITAL COURSE: Briefly, Mr. Corbett is a 78-year-old male with a past medical history of coronary artery disease status post CABG, aortic dissection with repair, hypertension, congestive heart failure, and morbid obesity, who had recently gone on a five-day vacation to [place]. They drove by car and returned home 2 days prior to this admission. He started feeling bad and was having pain down his legs primary to the left one. He was feeling more short of breath, loss of appetite, skipping meals, and more fatigued. He came to the ED, and had 100 degree fever with a dry nonproductive cough. Chest x-ray revealed right lower lobe consolidation consistent with pneumonia. He was initiated on antibiotic therapy. They ruled him out for PE with a V/Q scan. His bilateral Doppler's did show superficial venous thrombosis. His acute kidney injury resolved. He developed some pulmonary edema as seen on chest CT as well as a prominent right lower lobe pneumonia. His antibiotics were changed per Dr. Jackson. He was weaned off his supplemental O2. He reports he is able to walk in the hallway without getting short of breath. He will be discharged home today with Omnicef and doxycycline. VITAL SIGNS: At time of discharge, temperature is 97.5 degrees, heart rate 67, respirations 22, blood pressure 163/73, and 02 is 93% on room air. DISCHARGE DIET: Healthy heart. DISCHARGE MEDICATIONS: 1. Requip 1 mg p.o. at bedtime. 2. Fenofibrate 160 mg p.o. at bedtime. 3. Zocor 10 mg p.o. at bedtime. 4. Labetalol 400 mg p.o. q.8 hours. 5. Norvasc 5 mg p.o. daily. 6. Dulcolax 100 mg p.o. b.i.d. 7. Aspirin 325 mg p.o. daily. 8. Fish Oil 1000 mg p.o. b.i.d. 9. Lasix 20 mg p.o. daily. 10. Glucosamine 1 each p.o. b.i.d. 11. Potassium chloride 20 mEq p.o. daily. 12. Losartan potassium 25 mg p.o. daily. 13. Multivitamins 1 each p.o. daily. 14. Doxycycline 100 mg p.o. b.i.d. 15. Omnicef 300 mg p.o. b.i.d. FOLLOWUP: Mr. Corbett is pending discharge home with home health and physical therapy services. He is to take all medications as prescribed. He will need to follow up with his primary care provider, Dr. Honey Hernandez with repeat labs and repeat chest x-ray. He can return to the ED or call 911 for any worsening of symptoms. Dictated by MARKUS Saavedra for Ferd Kamara MD cc: MD Honey Gallo MD
--- NOTE | 2018-11-05 10:04 | DISCHARGE SUMMARY ---
ADMISSION DATE: 10/30/2018 DISCHARGE DATE: 11/04/2018 ADDENDUM: On discharge, the patient's x-ray was not any worse or any better, although clinically, he is improved. He and his both note that he is breathing better. He is ambulating better. Therefore, we will discharge him home. He will follow up outpatient with his primary care. We will continue antibiotics. Further orders as needed. cc: Fred Kamara MD
== END 2018-11-04 14:00 | disposition home health service (06) | DRG 193 ==
LOC: P.ED 17:19 → P.MEDSURG 21:16 → SUATTDRO 21:16
PROVIDERS: ATTEND Family Medicine